=== PATIENT | male | born 1945 | race African-American/Black ===

== ENCOUNTER → 2016-04-18 | Outpatient (CLI) | payer OTHER | LOC: FIMAGING 11:44 | PROVIDERS: ATTEND Physician Assistant | DX: M51.36 Other intervertebral disc degeneration, lumbar region (principal); M41.86 Other forms of scoliosis, lumbar region ==

== ENCOUNTER → 2016-05-04 | Outpatient (CLI) | payer OTHER ==
[~2016-05-04] MED LIST: IOPAMIDOL (ISOVUE-300) 100 ML BTL IV ONE
== END ==
LOC: CIMAGING 15:17
PROVIDERS: ATTEND Physician Assistant
DX: K57.30 Diverticulosis of large intestine without perforation or abscess without bleeding (principal); N40.0 Benign prostatic hyperplasia without lower urinary tract symptoms; K86.89 Other specified diseases of pancreas; K44.9 Diaphragmatic hernia without obstruction or gangrene
CPT/HCPCS: 74177; Q9967

== ENCOUNTER → 2016-05-31 | Outpatient (CLI) | payer OTHER ==
[~2016-05-31] MED LIST changes: +GADOBUTROL 10 ML VIAL IVP ONE; -IOPAMIDOL (ISOVUE-300) 100 ML BTL IV ONE
== END ==
LOC: FIMAGING 07:05
PROVIDERS: ATTEND Family Medicine Sports Medicine
DX: K86.89 Other specified diseases of pancreas (principal)
CPT/HCPCS: 74183; A9585

== ENCOUNTER 2016-12-26 09:03 | Observation (INO) | payer OTHER ==
[2016-12-26 09:18] VITALS: RESP 16
--- NOTE | 2016-12-26 09:32 | EDPHY ---
General - History Smoking Status: Former smoker Narrative: CHIEF COMPLAINT: Weakness, tingling, incontinence HISTORY OF PRESENT ILLNESS: Patient complains of feeling have normal this morning. He describes this as feeling foggy. It started when he was ambulating his home. He says he was walking to get a cup coffee when he had a bowel movement without meaning to do so. He also felt unsteady on his feet. He did feel the movement but had no control over. He has had no chest pain or shortness of breath. He has had no headache. No neck pain or stiffness. No fever chills. He has so seat this with some paresthesia of the left arm that lasted several minutes and then resolved spontaneously. No complaints at this time otherwise. One previous episode of this several months ago. He has not formally evaluated for this. No history of TIA or stroke. No history of coronary artery disease, diabetes or dyslipidemia. He was seen by his primary care physician last week. No other associated complaints or modifying factors. REVIEW OF SYSTEMS: Ten systems reviewed and are negative unless otherwise noted in the HPI PCP: Dr. Denver Schneider SPECIALISTS: None PAST MEDICAL HISTORY: Hypertension. Genital HSV PAST SURGICAL HISTORY: None recently related SOCIAL HISTORY: Nonsmoker. Occasional alcohol. No illicit substance use FAMILY HISTORY: Noncontributory EXAMINATION General Appearance: Alert, no distress Head: normocephalic, atraumatic. Symmetry of the face. Eyes: Pupils equal and round, no conjunctival pallor or injection. EOMs intact. No nystagmus. ENT, Mouth: Mucous membranes moist. Uvula midline. Airway patent. Neck: Normal inspection, supple, non-tender. Midline trachea Respiratory: Lungs are clear to auscultation. No wheezing, rhonchi or crackles Cardiovascular: Regular rate and rhythm. No murmur Gastrointestinal: Abdomen is soft and nontender Back: non-tender, no bony abnormalities Neurological: GCS 15. A&O, nonfocal, strength is symmetric in all 4 limbs. Normal [id number]. No pronator drift. NIH stroke scale is 0 Skin: Warm and dry, no rash. No petechiae or purpura Extremities: Nontender, no pedal edema Psychiatric: Mood and affect normal DIFFERENTIAL DIAGNOSES: Including but not limited to TIA, CVA, weakness, dehydration, encephalopathy, encephalitis MDM: 9:30 a.m. Symptoms consistent with possible TIA. There is no stroke activation as he has a normal examination at this time. He does describe TIA type symptoms, thus I have ordered CT of the head, EKG, laboratory studies and chest x-ray. He is in no acute distress. 9:59 a.m. Notified by radiologist Dr. Boyd. CT scan of the head reveals some atrophy but no acute hemorrhage or acute changes otherwise. 10:20 a.m. CBC unremarkable. EKG unremarkable as reviewed. Chemistry pending. Plan for admission for TIA CVA workup. He is in no acute distress. 10:35 a.m. Case discussed with hospitalist Diane Crowder. He will be admitted to . He is admitted in stable condition. Aspirin has been administered. He is not a tPA candidate as he has evidence of TIA and not CVA within normal neuro examination. (Hernán Sage) Differential Diagnosis: Differential diagnosis includes though is not limited to cardiac dysrhythmia, CVA, TIA, GI bleed, sepsis, hypoglycemia. (Mary Perales) Discussion: The patient was evaluated and managed by the physician stores assistant. I discussed the case with Hernán Sage and I agree with his assessment and plan. Likely TIA. CT negative. Aspirin given. My signature indicates that I have reviewed this chart and I agree with the findings and plan of care as documented. I am the primary supervising physician. (Mary Perales) - Objective Vital Signs: Initial Vital Signs Temperature (C) 36.5 C 12/26/16 09:10 Heart Rate 58 L 12/26/16 09:10 Respiratory Rate 16 12/26/16 09:10 Blood Pressure 124/80 H 12/26/16 09:10 O2 Sat (%) 98 12/26/16 09:10 O2 Delivery Mode Room Air Allergies/Adverse Reactions: No Known Allergies Allergy (Unverified 12/26/16 09:18) Home Medications: Medication Instructions Recorded Acyclovir [Zovirax 400 mg (*)] 800 mg PO DAILY PRN 12/26/16 Cholecalciferol Vit D3 [Vitamin D3 1,000 units PO DAILY 12/26/16 (*)] Lisinopril/Hctz 20/12.5MG 1 ea PO DAILY 12/26/16 [Zestoretic/Prinzide 20/12.5MG (*)] Naproxen Sodium [Aleve 220 MG (*)] 220 mg PO DAILY PRN 12/26/16 [place]-3 Fatty Acids [Fish Oil 1000 1,000 mg PO DAILY 12/26/16 mg (*)] Vitamin B Complex [B Complex] 1 each PO DAILY 12/26/16 Laboratory Results: Laboratory Results 12/26/16 09:50 12/26/16 09:50 Medications Given: Melatonin (Melatonin) 3 mg PO HS JHON Stop: 06/24/17 20:59 Last Admin: 12/26/16 22:40 Dose: 3 mg Discontinued Medications Aspirin (Aspirin) 324 mg PO EDNOW ONE Stop: 12/26/16 10:15 Last Admin: 12/26/16 10:18 Dose: 324 mg Departure - Departure Disposition: [facility] Inpatient Acute Clinical Impression: TIA (transient ischemic attack) Qualifiers: Transient cerebral ischemia type: unspecified Qualified Code(s): G45.9 - Transient cerebral ischemic attack, unspecified Condition: Good
--- NOTE | 2016-12-26 09:51 | CPEKG ---
Heart Rate: 56 RR Interval: 1071 P-R Interval: 192 QRSD Interval: 102 QT Interval: 436 QTC Interval: 421 P [place]: 67 QRS [place]: -19 T Wave [place]: 26 EKG Severity - OTHERWISE NORMAL ECG - EKG Impression: SINUS RHYTHM EKG Impression: BORDERLINE LEFT AXIS DEVIATION Electronically Signed By: Mary Perales 27-Dec-2016 10:40:28
[2016-12-26 10:03] LABS: % IMMATURE GRANULYOCYTES 0.5 % (0.0-1.1); ABSOLUTE IMMATURE GRANULOCYTES 0.02 10^3/uL (0.00-0.10); ADD DIFF? NO; ADD MORPH? NO; ADD SCAN? NO; ATYPICAL LYMPHOCYTE FLAG 60 (0-99); FRAGMENT RBC FLAG 0 (0-99); HEMATOCRIT 45.2 % (40.0-51.0); LEFT SHIFT FLG 0 (0-99); LIPEMIA HEMOLYSIS FLAG 80 (0-99); MEAN CELL HEMOGLOBIN 28.6 pg (27.9-34.1); MEAN CELL HEMOGLOBIN CONCENTR. 33.2 g/dL (32.4-36.7); MEAN CELL VOLUME 86.1 fL (81.5-99.8); MEAN PLATELET VOLUME 10.2 fL (8.7-11.7); PLATELET CLUMPS FLAG 0 (0-99); PLATELET COUNT 193 10^3/uL (150-400); RED BLOOD CELL COUNT 5.25 10^6/uL (4.40-6.38)
[2016-12-26 10:12] LABS: INR 1.04 (0.83-1.16); PROTIME(PATIENT) 13.5 SEC (12.0-15.0)
[2016-12-26] MEDS ORDERED: ASPIRIN 81 MG CHEWABLE TAB PO ONE (10:14)
[2016-12-26 10:24] LABS: ANION GAP 10 mEq/L (8-16); CALCIUM 9.2 mg/dL (8.5-10.4); CARBON DIOXIDE 27 mEq/l (22-31); CHLORIDE 102 mEq/L (97-110); CREATININE 1.1 mg/dL (0.7-1.3); GLOMERULAR FILTRATION RATE > 60; GLUCOSE 101 mg/dL (70-100); POTASSIUM 4.2 mEq/L (3.5-5.2); SODIUM 139 mEq/L (134-144)
[2016-12-26 10:34] LABS: TROPONIN I < 0.012 ng/mL (0.000-0.034)
[2016-12-26] MEDS ORDERED: NAPROXEN SODIUM 220 MG TAB PO PRN (15:26)
[2016-12-26] MEDS ORDERED: ACYCLOVIR 400 MG TAB PO PRN (15:26)
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
[2016-12-26] MEDS ORDERED: MELATONIN 3 MG TAB PO SCH (21:00)
[2016-12-27 05:43] LABS: CHOLESTEROL 172 mg/dL (140-220); CHOLESTEROL/HDL RATIO 2.49 RATIO (1.00-4.97); HIGH DENSITY LIPOPROTEIN 69 mg/dL (40-65); LDL/HDL RATIO 1.32 RATIO (1.00-3.64); LOW DENSITY LIPOPROTEIN 91 mg/dL (80-100); NON-HIGH DENSITY LIPOPROTEIN 103 mg/dL (90-129); TRIGLYCERIDE 63 mg/dL (40-150); VERY LOW DENSITY LIPOPROTEINS 12 mg/dL (8-25)
[2016-12-27] MEDS ORDERED: ASPIRIN EC 81 MG TAB PO SCH (09:00)
[2016-12-27] MEDS ORDERED: LISINOPRIL/HCTZ 20/12.5MG 1 EA TAB PO SCH (09:00)
[2016-12-27] MEDS ORDERED: OMEGA-3 FATTY ACIDS 1,000 MG CAP PO SCH (09:00)
[2016-12-27] MEDS ORDERED: CHOLECALCIFEROL VIT D3 1,000 UNITS TAB PO SCH (09:00)
[2016-12-27] MEDS ORDERED: VITAMIN B COMPLEX 1 EA CAP/TAB PO SCH (09:00)
[2016-12-27 09:06] LABS: HEMOGLOBIN A1C 5.7 % (4.0-6.0)
--- NOTE | 2016-12-27 10:01 | GCON ---
[f rep st] CONSULTATION NEUROLOGY CONSULTATION REFERRING PHYSICIAN: Sugar Lopez MD HISTORY: The patient is a 71-year-old gentleman who I am asked to see in neurologic consultation reg arding acute neurologic set of symptoms that occurred yesterday morning around 6:30 a.m. He says jolene t he was standing and had the abrupt feeling of being disoriented, not cognitively, but he says it wa s like his "gyroscope was off." He said if he had been asked to walk a straight line, he would not h ave been able to do it because of feeling unsteady. He did not feel this was a classic sense of vert igo. He did not have focal numbness, he did not feel focal weakness or change in vision or speech. At some point he was describing feeling a little bit foggy. He had a somewhat similar episode a few months ago, but never sought evaluation for that. He denies fever, chills, nausea, vomiting, or diar justin. No chest pain, palpitations, or shortness of breath. He also described having earlier some mi ld fecal incontinence when he tried to pass gas and had mild leakage of stool. The whole episode pro bably lasted no more than a minute he says, which was similar to the previous one. No other clear-cu t precipitating factors. It was not really associated with any movement. REVIEW OF SYSTEMS: Otherwise, a 10-point review of systems completed and unremarkable except for jolene t noted above. PAST MEDICAL HISTORY: Some mild hypertension, history of HSV. Has a history of smoking in the past, but not now. Occasional alcohol. HOME MEDICATION: Naproxen, lisinopril HCTZ, Zestoretic, acyclovir as needed. He has currently been given an aspirin since hospitalization, but was not taking one prior to admission. ALLERGIES: No allergies. PHYSICAL EXAM: VITAL SIGNS: The blood pressure 129/74, pulse of 54, respirations 16, temperature 37 .2. GENERAL: He is well developed, in no acute distress. EYES: Clear. NECK: Supple with no brui ts or masses. CARDIAC: Regular rate and rhythm. No murmur. He is awake, alert, attentive, clear, fluent speech with normal cognition characterized by orientation to person, place, and time. Good re cent and remote memory as well as normal concentration and attention and general fund of knowledge. The pupils are 3 mm and reactive. Extraocular movements intact. No visual field loss. I cannot see fundi. Normal facial sensation and strength. Palate elevates symmetrically. Tongue protrudes midl ine. Hearing is preserved. No weakness in his neck or shoulder shrug. Motor exam: Normal muscle b ulk and tone with 5/5 strength and no abnormal movements. Sensation is preserved for temperature and light touch. Reflexes are 1+. His station is steady. His gait is steady. He is able to walk heel -to-toe with only some mild unsteadiness. The patient had carotid ultrasound that showed no significant stenoses. The head CT obtained yesterd ay showed no evidence of an acute stroke. It was basically normal. Echocardiogram is pending. Laboratories show normal CBC and INR. Lipid panel shows HDL cholesterol of 69, LDL of 91, otherwise unremarkable electrolytes. The rhythm has been sinus. IMPRESSION: The patient has experienced 2 episodes in the last several months of brief neurologic dy sfunction characterized by a feeling of unsteadiness. It is not classic vertigo. The differential c onsideration includes a vestibular disorder, but can also be related to ischemia and could be transie nt ischemic attack. I think acute stroke is unlikely and agree that simply going with aspirin therap y for now is appropriate. The LDL cholesterol is greater than 70, but less than 100 and use of a sta tin for transient ischemic attack would be indicated, with a somewhat equivocal nature of the exact c ause it is not certain if he should be on a statin or not. I think this is something that can be pur sued in discussion with his primary care provider. If the patient would like to be on a statin for a conservative approach in case this is transient ischemic attack, that is also perfectly reasonable. I think we simply will not know for sure. He should continue on a daily aspirin and because of unkn own cause for this, I would recommend he see Cardiology to establish for a 30-day event monitor. He can follow up with me as an outpatient with any additional questions. /[id number]/MODL
[2016-12-27 11:35] VITALS: BP 107/77; PULSE 57; TEMP 98.6; O2SAT 95
--- NOTE | 2016-12-27 14:33 | ECHO ---
[email or web address] [address] Main: [phone] Fax: Transthoracic Echocardiogram Name: FOZIA GIBBONS MR#: [id number] Study Date: 12/27/2016 Study Time: 07:59 AM Date of : 1945 Age: 71 year(s) Height: 12.7 cm (5 in.) Weight: 4.99 kg (11 lb.) BSA: 0.09 m2 Gender: Male Examination: Echo Indication: TIA, Eval for Cardiac Source of emboli Image Quality: Contrast: Requested by: Boone Shaw BP: 104 mmHg/62 mmHg Heart Rate: Rhythm: Normal sinus rhythm Indication: TIA, Eval for Cardiac Source of emboli Procedure Staff Line Service Technician: Garcia Bonilla Physician: Narendra Montalvo Requesting Provider: Conclusions: Normal global systolic LV function. EF is 75 %. There is no mitral valve regurgitation. There is no aortic valve regurgitation. The tricuspid valve is normal in appearance and function. Measurements: Chambers Valvular Assessment AV/MV Valvular Assessment TV/PV Normal Normal Normal Name Value Range Name Value Range Name Value Range Ao Shaina (MM): 3.3 cm (2.2 cm-3.7 AV Vmax: 1.13 m/s (1 m/s-1.7 PV Vmax: 0.72 m/s (0.6 m/s-0.9 cm) m/s) m/s) IVSd (2D): 0.9 cm (0.6 cm-1.1 AV maxP mmHg ( - ) PV PGmax: 2 mmHg ( - ) cm) LVOT Vmax: 0.95 m/s (0.7 m/s-1.1 LVDd (2D): 5.4 cm (4.2 cm-5.9 m/s) cm) MV E Vmax: 0.63 m/s ( - ) LVDs (2D): 3.0 cm (2.1 cm-4 MV A Vmax: 0.59 m/s ( - ) cm) MV E/A: 1.07 ( - ) LVPWd (2D): 1.0 cm (0.6 cm-1 cm) LVEF (2D): 75 (>=54 %) Continued Measurements: Chambers Valvular Assessment AV/MV Name Value Name Value LADs Lon.6 cm MV E' Septal: 0.11 m/s LA Area: 13.6 cm2 MV E/E' Septal: 5.60 MV E/E' Lateral: 6.40 Patient: FOZIA GIBBONS Study Date: 12/27/2016 Page 1 of 2 07:59 AM Findings: Left Ventricle: Normal size left ventricle. No LV hypertrophy. Normal global systolic LV function. EF is 75 %. No regional wall motion abnormality. Right Ventricle: Normal size right ventricle. Normal RV function. Left Atrium: The left atrium is normal in size. Right Atrium: The right atrium is normal in size. Mitral Valve: The mitral valve is normal in appearance and function. There is no mitral valve regurgitation. Aortic Valve: The aortic valve is tri-leaflet. Mild aortic cusp calcification is noted. No aortic valve stenosis is present. There is no aortic valve regurgitation. Tricuspid Valve: The tricuspid valve is normal in appearance and function. Pulmonic Valve: Pulmonary valve not well visualized. Aorta: The aorta is normal. Pericardium: No pericardial effusion. (No Signature Object) Patient: FOZIA GIBBONS Study Date: 12/27/2016 Page 2 of 2 07:59 AM [id number]
--- NOTE | 2016-12-27 16:22 | ASDISCHSUM ---
Discharge Information Plan Status:Home with No Needs Medically Cleared to Leave: Discharge Date:12/27/2016 01:27 PM CM D/C Disposition:Home, Routine, Self-Care ADT D/C Disposition:Home, Routine, Self-Care Projected Discharge Date:12/27/2016 01:27 PM Transportation at D/C: Discharge Delay Reason: Follow-Up Date:12/27/2016 01:27 PM Discharge Slot: Final Diagnosis: Placement Information Patient Contact Information Contact Name:MARNIE Relationship: Address:[address] City:[place] Alternate Phone: State/Zip Code:[place] [address] Email: Financial Information Financial Class:Medicare Advantage Plans Primary Plan Desc:UNITED MEDICARE ADVANTAGE Primary Plan Number:[id number] Secondary Plan Desc: Secondary Plan Number: Assessment Information LACE LACE Acuity / Level of Care Answers: Was the patient admitted to hospital via the emergency department? Yes: Emergency dept visits in Answers: 1 last 6 months Score: 4 Date Signed: 12/26/2016 12:06 PM Electronically Signed By:Brittney Arevalo RN [facility] CM Progress Note CM Note CM Note Notes: Pt medically stable for d/c, no CM d/c needs identified. Date Signed: 12/27/2016 04:21 PM Electronically Signed By:TONIO Pierce Intervention Information Intervention Type:*INIGUEZ-Signed Date of Service:12/27/2016 11:29 AM Patient Type:Observation Staff Member:Rosalind Aguiar Hours: Discipline: Severity: Comment:
--- NOTE | 2016-12-27 17:24 | GDS ---
[f rep st] DISCHARGE SUMMARY CONSULTANTS: Dr. Moe Regalado, Neurology IMAGING STUDIES AND PROCEDURES: 1. Head CT December 26 showed moderate bilateral maxillary sinusitis. No evidence of infarct or bl eed. 2. Echocardiogram December 26 showed normal systolic function with an ejection fraction of 75%. No significant valvular disease or evidence of LV thrombus. 3. Carotid artery Doppler study December 26, 2016, showed no evidence of flow-limiting carotid stenos is. HISTORY: For details, please see dictated History and Physical dated December 26. In brief. the dmitri lackey is a 71-year-old male with history of hypertension, who presented to the emergency department w ith dizziness and possible right-sided weakness. He was admitted to the hospital for TIA workup. HOSPITAL COURSE: The patient was admitted to the Med/Surg unit, and a TIA workup was pursued with im aging studies as described above. He was started on daily aspirin. Neurology consult was obtained. Overall, it is unclear if this was a true neurologic event such as a TIA, if this could be an inner ear disturbance, or possibly even related to the maxillary sinusitis finding on his CT scan. If his symptoms persist, would consider treatment for sinusitis and I will defer this to his primary care ph ysician. Given the possibility of a TIA, I think it is reasonable to initiate statin therapy and he can have ongoing discussion with his PCP about if they would like to continue this. His LDL here is 91. He remained normotensive throughout the hospitalization. His symptoms have completely resolved, and the patient wishes to discharge home. I did recommend the patient follow up with [facility] for a 30-day cardiac event monitor, given the possibility of atrial fibrillation, if this were indeed a true TIA. DISPOSITION: Patient is discharged home in stable condition. FOLLOWUP: 1. Primary Care Physician. 2. Dr. Narendra Montalvo at [facility] for 30-day cardiac event monitor. DISCHARGE MEDICATIONS: Please see [facility] for completed outpatient medication list. New medication s on discharge include aspirin 81 mg p.o. daily #30, no refills; atorvastatin 80 mg p.o. daily #30, n o refills. He will continue all other outpatient medications as previously prescribed. /[id number]/MODL
== END 2016-12-27 13:27 | disposition home or self-care (01) ==
LOC: F3N 12:35
PROVIDERS: ADMIT Internal Medicine; ATTEND Hospitalist
DX: G45.9 Transient cerebral ischemic attack, unspecified (principal); I10 Essential (primary) hypertension; Z87.891 Personal history of nicotine dependence; J32.0 Chronic maxillary sinusitis
CPT/HCPCS: 70450; 71010; 92523; 93005; 93306; 93880; 97161; 97165; 99285; G0378; G8978; G8979; G8980; G8987; G8989; G9165; G9166; G9167

== ENCOUNTER → 2017-05-16 | Outpatient (CLI) | payer OTHER | LOC: FIMAGING 12:22 | PROVIDERS: ATTEND Family Medicine Sports Medicine | DX: M25.562 Pain in left knee (principal) ==

== ENCOUNTER → 2017-05-24 | Outpatient (CLI) | payer OTHER | LOC: FIMAGING 16:00 | PROVIDERS: ATTEND Family Medicine Sports Medicine | DX: M22.41 Chondromalacia patellae, right knee (principal); M23.8X1 Other internal derangements of right knee ==

== ENCOUNTER → 2017-12-24 | Outpatient (CLI) | payer OTHER | LOC: FIMAGING 17:08 | PROVIDERS: ATTEND Family Medicine Sports Medicine | DX: M54.2 Cervicalgia (principal); M47.27 Other spondylosis with radiculopathy, lumbosacral region; Z98.1 Arthrodesis status ==

== ENCOUNTER → 2018-07-31 | Outpatient (CLI) | payer OTHER | LOC: FIMAGING 19:22 ==

== ENCOUNTER 2018-08-18 04:57 | Emergency (ER) | payer OTHER | END 2018-08-18 06:01 | disposition home or self-care (01) ==

== ENCOUNTER → 2018-08-27 | Outpatient (CLI) | payer OTHER | LOC: FIMAGING 08:48 ==